=== PATIENT | female | born 1985 | race Caucasian/White ===

== ENCOUNTER 2019-02-17 03:47 | Emergency (ER) | payer MEDICAID ==
--- NOTE | 2019-02-17 04:11 | Emergency Department Record ---
History of Present Illness - General Chief complaint: Pain Stated complaint: NECK/SHOULDER PAIN Time Seen by Provider: 02/17/19 03:54 Source: Patient Mode of Arrival: Ambulatory Limitations: No limitations - History of Present Illness Initial comments: The patient is here due to a 2-3 day hx of L posterior neck pain. It is a sharp stabbing pain that intermittently radiates to the L shoulder. Any head or neck movement increases the pain. There is no arm or leg numbness, weakness, or any bowel or bladder issues. The patient has no hx of similar problems and no hx or recent trauma. She did take an ASA for it earlier this evening but since it did not work she decided to come to the ER. Additionally about 2 hours ago the patient did have a brief period of SOB which felt like her asthma. She did use her inhaller and then did feel some heart palpitations for a brief time. Presently feels completely back to normal and denies any SOB, MARCIO, CP, or palp itations. The patient also is late for her menses and believes she could be . Her last menses was about 6 weeks ago. MD Complaint: Neck Pain Onset/Timin -: Days(s) Location: Left, Shoulder History of Same: No Radiation: Proximal Quality: Aching Consistency: Constant Improves with: Immobilization, Other Worsens with: Exertion, Palpation, Other (twisting.) Associated Symptoms: Denies other symptoms - Related Data Allergies Allergy/AdvReac Type Severity Reaction Status Date / Time Penicillins Allergy Severe Hives, Unverified 01/21/19 14:33 nausea, urticaria Travel Screening - Travel/Exposure Within Last 30 Days Have you traveled within the last 30 days?: No - Travel Symptoms Symptom Screening: Joint & Muscle Aches Review of Systems Constitutional: Denies: Chills, Fever Eyes: Denies: Eye discharge ENT: Denies: Congestion Respiratory: Denies: Cough, Dyspnea Cardiovascular: Reports: Palpitations. Denies: Arrhythmia, Chest pain Endocrine: Denies: Fatigue Gastrointestinal: Denies: Nausea Genitourinary: Denies: Dysuria Musculoskeletal: Denies: Arthralgia Skin: Denies: Bruising Past Medical History - SOCIAL HISTORY Smoking Status: Current every day smoker Alcohol Use: None Drug Use: Rare Drug Use Detail:: Marijuana - RESPIRATORY Hx Respiratory Disorders: Yes Hx Asthma: Yes Comment:: seasonal allergies - CARDIOVASCULAR Hx Cardio Disorders: No - NEURO Hx Neuro Disorders: Yes Hx Headaches: Yes - GI Hx GI Disorders: No - Hx Genitourinary Disorders: No - ENDOCRINE Hx Endocrine Disorders: Yes Hx Thyroid Disease: Yes (partial thyroidectomy) - MUSCULOSKELETAL Hx Musculoskeletal Disorders: No - PSYCH Hx Psych Problems: Yes Comment:: bipolar I - HEMATOLOGY/ONCOLOGY Hx Hematology/Oncology Disorders: No Family Medical History Any Significant Family History?: Yes Hx Cancer: Mother Hx Diabetes: Father Physical Exam - General General Appearance: Alert, Oriented x3, Cooperative, No acute distress - Head Head exam: Atraumatic, Normocephalic, Normal inspection Image of Face/Head: 1 - Area of pain and reproducible tenderness. - Eye Eye exam: Normal appearance, PERRL - ENT Throat exam: Normal inspection. negative: Tonsillar erythema, Tonsillar exudate - Neck Neck exam: Normal inspection, Full ROM, Tenderness (Palpation of the L posterior cervical muscles does reproduce the pain. ). negative: Meningismus - Respiratory Respiratory exam: Normal lung sounds bilaterally. negative: Accessory muscle use, Prolonged expiratory, Respiratory distress, Rhonchi, Stridor, Wheezes - Cardiovascular Cardiovascular Exam: Regular rate, Normal rhythm, Normal heart sounds, Tachycardia (very mild at 105.) - GI/Abdominal GI/Abdominal exam: Soft, Normal bowel sounds. negative: Tenderness - Extremities Extremities exam: Normal inspection, Full ROM, Normal capillary refill. neg ative: Tenderness - Neurological Neurological exam: Abnormal gait, Alert, Normal gait, Oriented X3, Reflexes normal. negative: Altered, Motor sensory deficit (Motor and sensory are 5/5 to the upper and lower extremities.) - Skin Skin exam: negative: Rash Course Vital Signs 02/17/19 03:52 Temperature 98.4 F Pulse Rate [ 109 H Pulse Ox Probe] Respiratory 28 H Rate Blood Pressure 151/93 [Right Arm] Pulse Ox 94 L - Reevaluation(s) Reevaluation #1: The patient is doing very well at this time. She denies any CP, SOB, MARCIO, or palpitations. The L neck pain is mostly gone at this time and she only is f eeling it when she turns her head to the R. 02/17/19 04:29 Reevaluation #2: The patient is doing very well at this time and states her pain is almost gone. She is presently lying flat on the bed on her back with both arms crossed behind her head with her head resting on her hands. I did offer to keep her in the ER for a few hours for a 2nd troponin but she did refuse that plan. Her history is very atypical for cardiac pain and her Heart Score is very low so I do feel it is safe to discharge her. Additionally she no longer is tachycardic or dyspneic and has had no pleuritic pain and with the neg D-dimer I do not feel she will need any further workup for a PE. The patient is approx. 6 weeks and is to stop smoking and is to take Tylenol for her pain and see her PCP this week for recheck. 02/17/19 05:05 Medical Decision Making - Data Complexity MDM Data: Labs Ordered and/or Reviewed, X-Ray Ordered and/or Reviewed, EKG Ordered and/or Reviewed - Lab Data Result diagrams: 02/17/19 04:23 02/17/19 04:23 - EKG Data -: EKG Interpreted by Me EKG: No Acute Changes, Normal EKG - Radiology Data Radiology results: Report reviewed (CXR: Neg) Disposition Disposition: Discharge Clinical Impression: Spasm of cervical paraspinous muscle Disposition: Home, Self-Care Condition: (2) Stable Instructions: Muscle Spasm (ED) Additional Instructions: Please take Tylenol for pain and please stop smoking tobacco and Marijuana. Please see your family doctor for recheck this week. Please return to the ER for any worsening symptoms. Forms: Patient Portal Access Time of Disposition: 05:10 Quality - Quality Measures Quality Measures: N/A - Blood Pressure Screening View Details: Yes Does Patient Have Any of the Following: Active Dx of HTN Blood Pressure Classification: Hypertensive Reading Systolic Measurement: 155 Diastolic Measurement: 105 Screening for High Blood Pressure: Patient Exclusion, Hx of HTN [G9744]
[2019-02-17 04:18] LABS: URINE APPEARANCE CLEAR; URINE BILIRUBIN NEGATIVE (NEGATIVE); URINE BLOOD NEGATIVE (NEGATIVE); URINE COLOR YELLOW; URINE KETONE NEGATIVE (NEGATIVE); URINE LEUKOCYTE ESTERASE NEGATIVE (NEGATIVE); URINE NITRITE NEGATIVE (NEGATIVE); URINE PROTEIN NEGATIVE (NEGATIVE); URINE UROBILINOGEN 0.2 E.U./dL (0.20 - 1.00)
[2019-02-17 04:20] LABS: HCG,QUALITATIVE URINE POSITIVE (NEGATIVE)
[2019-02-17] MEDS ORDERED: ACETAMINOPHEN 325 MG TAB PO ONE (04:22)
[2019-02-17 04:24] LABS: AMPHETAMINE SCREEN URINE NOT DETECTED; BARBITURATE SCREEN URINE NOT DETECTED; BENZODIAZEPINE SCREEN URINE NOT DETECTED; COCAINE SCREEN URINE NOT DETECTED; METHADONE SCREEN URINE NOT DETECTED; METHAMPHETAMINE SCREEN NOT DETECTED; OPIATE SCREEN URINE NOT DETECTED; OXYCODONE SCREEN URINE NOT DETECTED; PHENCYCLIDINE SCREEN URINE NOT DETECTED; PROPOXYPHENE SCREEN URINE NOT DETECTED; THC SCREEN URINE DETECTED; TRICYCLIC ANTIDEPRESSANT SCRN NOT DETECTED
[2019-02-17 04:30] LABS: ABSOLUTE NEUTROPHIL COUNT 7.49; BASO % 0.4 % (0-6); EOS % 0.7 % (0-6); GRAN % 72.2 % (47-80); HEMATOCRIT 37.7 % (35.0-47.0); HEMOGLOBIN 12.7 gm/dl (11.6-16.0); LYMPH % 19.9 % (16-45); MEAN CELL VOLUME 92.9 fl (81-97); MEAN CORPUSCULAR HEMOGLOBIN 31.3 pg (27-33); MEAN CORPUSCULAR HGB CONC 33.7 g/dl (32-36); MEAN PLATELET VOLUME 8.5 fl (7.4-10.4); MONO % 6.8 % (0-9); PLATELET COUNT 297 K/uL (130-400); RED BLOOD COUNT 4.06 M/uL (3.80-5.40); RED CELL DISTRIBUTION WIDTH 12.7 % (11.5-14.5); WHITE BLOOD COUNT W/O DIFF 10.4 K/uL (4.2-12.2)
[2019-02-17 04:39] LABS: BLOOD UREA NITROGEN 6 mg/dL (6-20); CREATININE 0.6 mg/dL (0.5-0.9); EST GLOMERULAR FILTRATION RATE > 60 mL/min
[2019-02-17 04:40] LABS: TOTAL PROTEIN 6.2 g/dL (6.6-8.7)
[2019-02-17 04:42] LABS: GLUCOSE,RANDOM 168 mg/dL (74-109)
[2019-02-17] MEDS ORDERED: POTASSIUM CHLORIDE 20 MEQ TABLET PO ONE (04:42)
[2019-02-17 04:45] LABS: ALB/GLOB RATIO 1.8 (1.1-1.8); ALKALINE PHOSPHATASE 58 U/L (35-104); ALT/SGPT 8 U/L (<33); AST/SGOT 12 U/L (10.0-35.0)
--- NOTE | 2019-02-19 05:51 | RADIOLOGY REPORT ---
EXAM: CHEST 2 VIEWS HISTORY: UPPER NECK AND SHOULDER PAIN. SHORTNESS OF BREATH FOR TWO DAYS. TECHNIQUE: Upright PA and lateral views of the chest. COMPARISON: None. FINDINGS: The cardiomediastinal silhouette is normal in size and configuration. The pulmonary vasculature is nondilated. The lungs and pleural spaces are clear. Mild levoconvex curvature of the upper thoracic spine. Mild degenerative endplate changes scattered throughout the visualized spine. IMPRESSION: NO RADIOGRAPHIC EVIDENCE OF ACUTE CARDIOPULMONARY DISEASE. JOB NUMBER: [id number] [facility]
== END 2019-02-17 05:17 | disposition home or self-care (01) ==
LOC: ER 03:47
DX: M62.830 Muscle spasm of back (principal); M54.2 Cervicalgia; M25.512 Pain in left shoulder; R06.02 Shortness of breath; I10 Essential (primary) hypertension; F17.210 Nicotine dependence, cigarettes, uncomplicated
CPT/HCPCS: 71046; 80053; 80305; 81003; 81025; 84484; 85025; 85379; 93005; 93010; 99284

== ENCOUNTER 2019-10-22 01:16 | Inpatient (IN) | payer MEDICAID ==
--- NOTE | 2019-10-22 01:38 | Emergency Department Record ---
History of Present Illness - General Chief complaint: Fatigue and Weakness Stated complaint: WEAKNESS Time Seen by Provider: 10/22/19 01:18 Source: Patient, Family Mode of Arrival: Wheelchair Limitations: Altered mental status - History of Present Illness Initial comments: 34 yo female presents with about two weeks of symptoms. Her reports she delivered a baby on October 09 vaginally. The was at a hospital in [facility]. Per the she has not been acting normally since then. She has known schizophrenia. She is on Haldol and Cogentin. She has been mentally very slowed and withdrawn sleeping more. She has been weak all over. She is so weak she has trouble walking. She gets shaky. She is very slow to respond in conversations but answers appropriately. . The states she did have pre-eclampsia with the delivery. He states she was treated with magnesium for about a day and did well after delivery. No trauma has occurred that he or she are aware of. No fever. No abdominal pain. No vomiting or diarrhea. No cough or trouble breathing. She has been on the Haldol and Cogentin since mid last year. She is often slowed on the medicines but the last two weeks has been worse. She is followed through [facility] in [place] during the . She moved to the [facility] area to have the baby. She and her deny drugs or alcohol. Prior diagnoses per the and prior medical records include bipolar, glynn, psychosis, detachment disorder, hypertension. She was admitted to [facility] in the past. states they have been 13 years. No hallucinations with the symptoms. MD Complaint: Generalized weakness -: Week(s) (2) Severity: Moderate Quality: Other Consistency: Getting worse Improves with: None Worsens with: Other Context: Other (Schizophrenia) Associated Symptoms: Denies other symptoms - [place] Com[place] Scale Eye Response: (4) Open spontaneously Motor Response: (6) Obeys commands Verbal Response: (5) Oriented [place] Total: 15 - Related Data Home Medications Medication Instructions Recorded Confirmed Last Taken Benztropine Mesylate 1 mg PO DAILY 10/22/19 10/22/19 Unknown Haloperidol 10 mg PO DAILY 10/22/19 10/22/19 Unknown Nifedipine [Nifedipine ER] 30 mg PO DAILY 10/22/19 10/22/19 Unknown Allergies Allergy/AdvReac Type Severity Reaction Status Date / Time Penicillins Allergy Severe Hives, Unverified 01/21/19 14:33 nausea, urticaria Review of Systems Constitutional: Reports: Malaise, Weakness. Denies: Chills, Fever Eyes: Denies: Eye discharge, Eye pain, Photophobia, Vision change ENT: Denies: Congestion, Throat pain Respiratory: Denies: Cough, Dyspnea, Hemoptysis, Stridor, Wheezes Cardiovascular: Denies: Chest pain, Dyspnea on exertion, Palpitations, Syncope Endocrine: Reports: Fatigue. Denies: Polydipsia, Polyuria Gastrointestinal: Denies: Abdominal pain, Diarrhea, Nausea, Vomiting Genitourinary: Denies: Dysuria, Urgency Musculoskeletal: Denies: Arthralgia, Back pain, Myalgia Skin: Denies: Bruising, Change in color, Rash Neurological: Reports: Abnormal gait, Tremors, Weakness. Denies: Headache Psychiatric: Reports: Anxiety, Depression, Other. Denies: Auditory hallucinations, Visual hallucinations Hematological/Lymphatic: Denies: Anemia, Blood Clots, Easy bleeding, Easy bruising Past Medical History - SOCIAL HISTORY Smoking Status: Current every day smoker Drug Use: Rare Drug Use Detail:: Marijuana - RESPIRATORY Hx Respiratory Disorders: Yes Hx Asthma: Yes Comment:: seasonal allergies - CARDIOVASCULAR Hx Cardio Disorders: No - NEURO Hx Neuro Disorders: Yes Hx Headaches: Yes - GI Hx GI Disorders: No - Hx Genitourinary Disorders: No - ENDOCRINE Hx Endocrine Disorders: Yes Hx Thyroid Disease: Yes (partial thyroidectomy) - MUSCULOSKELETAL Hx Musculoskeletal Disorders: No - PSYCH Hx Psych Problems: Yes Comment:: bipolar I - HEMATOLOGY/ONCOLOGY Hx Hematology/Oncology Disorders: No Family Medical History Hx Cancer: Mother Hx Diabetes: Father Physical Exam - General General Appearance: Alert, Cooperative, No acute distress, Other (The patient is awake. She makes eye contact but is very slow to verbally acknowledge or respond) Limitations: No limitations - Head Head exam: Atraumatic, Normocephalic, Normal inspection - Eye Eye exam: Normal appearance, PERRL. negative: Conjunctival injection, Scleral icterus - ENT ENT exam: Normal exam, Mucous membranes moist, Normal orophraynx Ear exam: Normal external inspection Nasal Exam: Normal inspection Mouth exam: Normal external inspection - Neck Neck exam: Normal inspection, Full ROM. negative: Lymphadenopathy - Respiratory Respiratory exam: Normal lung sounds bilaterally. negative: Accessory muscle use, Decreased breath sounds, Prolonged expiratory, Rhonchi, Stridor, Wheezes - Cardiovascular Cardiovascular Exam: Regular rate, Normal rhythm, Normal heart sounds - GI/Abdominal GI/Abdominal exam: Soft. negative: Distended, Guarding, Tenderness - Rectal Rectal exam: Deferred - exam: Deferred - Extremities Extremities exam: Normal inspection. negative: Pedal edema - Back Back exam: Denies: CVA tenderness (R), CVA tenderness (L) - Neurological Neurological exam: Abnormal gait (slow, shuffled), Alert, Altered. negative: Motor sensory deficit - Psychiatric Psychiatric exam: Depressed, Flat affect. negative: Agitated, Anxious, Normal affect, Normal mood - Skin Skin exam: negative: Abrasion, Cyanosis, Diaphoretic, Mottled Course Vital Signs 10/22/19 01:22 Temperature 99.1 F Pulse Rate [ 102 H Pulse Ox Probe] Respiratory 24 Rate Blood Pressure 129/93 [Left Arm] Pulse Ox 93 L - Reevaluation(s) Reevaluation #1: 10/22/19 01:41 The patient was seen and examined She has a profoundly flat affect and is very slow to respond to questions No fever BP is 129/ Records from her were requested 10/22/19 02:18 10/22/19 02:19 The CBC was reviewed No acute abnormalities The LFTs are normal The Renal function is normal The Tylenol is negative The Aspirin is negative The Alcohol is negative 10/22/19 02:20 10/22/19 02:35 Lab contacted the ED K is 2.6 EKG and Monitor ordered KCL ordered 10/22/19 02:36 UDS is positive for marijuana 10/22/19 02:44 EKG #1: 02:37 Rate: 96 Rhythm: sinus [place]: normal Intervals: Qtc [address] ST segments: normal The patient will be admitted for hypokalemia and monitoring to see if her symptoms improve with K replenishment The states her next outpatient appointment is the in the [place] office Medical Decision Making - Lab Data Result diagrams: 10/22/19 01:42 10/22/19 01:42 Disposition Disposition: Admit Clinical Impression: Weakness, Hypokalemia Schizophrenia Qualifiers: Schizophrenia type: unspecified Qualified Code(s): F20.9 - Schizophrenia, unspecified Disposition: Still a Patient at [facility] Decision to Admit: Admit from ER Decision to Admit Date: 10/22/19 Decision to Admit Time: 02:38 Condition: (2) Stable Forms: Patient Portal Access Time of Disposition: 02:47 Quality - Quality Measures Quality Measures: N/A - Blood Pressure Screening Does Patient Have Any of the Following: Active Dx of HTN Blood Pressure Classification: Hypertensive Reading Systolic Measurement: 129 Diastolic Measurement: 93 Screening for High Blood Pressure: Patient Exclusion, Hx of HTN [G9744]
[2019-10-22 01:52] LABS: ABSOLUTE NEUTROPHIL COUNT 5.95; BASO % 0.5 % (0-6); EOS % 1.7 % (0-6); GRAN % 61.8 % (47-80); HEMATOCRIT 38.1 % (35.0-47.0); HEMOGLOBIN 12.6 gm/dl (11.6-16.0); LYMPH % 26.8 % (16-45); MEAN CELL VOLUME 96.5 fl (81-97); MEAN CORPUSCULAR HEMOGLOBIN 31.9 pg (27-33); MEAN CORPUSCULAR HGB CONC 33.1 g/dl (32-36); MEAN PLATELET VOLUME 8.2 fl (7.4-10.4); MONO % 9.2 % (0-9); PLATELET COUNT 393 K/uL (130-400); RED BLOOD COUNT 3.95 M/uL (3.80-5.40); RED CELL DISTRIBUTION WIDTH 13.5 % (11.5-14.5); WHITE BLOOD COUNT W/O DIFF 9.6 K/uL (4.2-12.2)
[2019-10-22 02:06] LABS: BLOOD UREA NITROGEN 5 mg/dL (6-20); CREATININE 0.5 mg/dL (0.5-0.9); EST GLOMERULAR FILTRATION RATE > 60 mL/min; TOTAL PROTEIN 6.1 g/dL (6.6-8.7)
[2019-10-22 02:07] LABS: INR 1.1; PARTIAL THROMBOPLASTIN TIME 26.8 SECONDS (24.5-39.1); PROTHROMBIN TIME (PATIENT) 11.1 SECONDS (9.5-12.1)
[2019-10-22 02:08] LABS: GLUCOSE,RANDOM 122 mg/dL (74-109)
[2019-10-22 02:11] LABS: ALBUMIN 3.7 g/dL (4.0-5.0); ALKALINE PHOSPHATASE 96 U/L (35-104); ALT/SGPT 17 U/L (<33); AST/SGOT 17 U/L (10.0-35.0)
[2019-10-22 02:13] LABS: ACETAMINOPHEN < 5.0 ug/mL (10.0-30.0); BILIRUBIN,DIRECT < 0.2 mg/dL (0-0.3); SALICYLATE < 0.3 mg/dL (2.8-20)
--- NOTE | 2019-10-22 02:17 | CT SCAN REPORT ---
EXAMINATION: CT Head without IV Contrast EXAM DATE: 10/22/2019 2:11 AM TECHNIQUE: Standard protocol CT images of the head were obtained without intravenous contrast. Donaldson l and sagittal reconstructed images were created. INDICATION: 34-year-old female who is 2 weeks presents with weakness, dizziness, falls an d is slow to respond. COMPARISON: None. HAND DOMINANCE: Unknown. ENCOUNTER: Not applicable. FINDINGS: The basal cisterns, ventricular system and the sulci overlying the cervical convexities are well visu alized and are normal in appearance for the patient's age. The brain parenchyma has normal density with nothing to suggest an acute ischemic event, brain parenc hymal mass or acute intracranial hemorrhage. There is no abnormal extra-axial fluid. The orbits and mastoid regions are normal in appearance. The visualized portions of the paranasal sin uses are clear and well aerated. There is no skull fracture. IMPRESSION: 1. Normal noncontrast CT of the head. Dictated by: Hermes Sanz DO on 10/22/2019 2:11 AM. .
[2019-10-22 02:22] LABS: THYROID STIMULATING HORMONE 0.63 uIU/mL (0.270-4.20)
[2019-10-22 02:30] LABS: URINE APPEARANCE CLEAR; URINE BILIRUBIN NEGATIVE (NEGATIVE); URINE BLOOD NEGATIVE (NEGATIVE); URINE COLOR YELLOW; URINE GLUCOSE (UA) NEGATIVE (NEGATIVE); URINE KETONE NEGATIVE (NEGATIVE); URINE LEUKOCYTE ESTERASE NEGATIVE (NEGATIVE); URINE NITRITE NEGATIVE (NEGATIVE); URINE PROTEIN NEGATIVE (NEGATIVE); URINE UROBILINOGEN 0.2 E.U./dL (0.20 - 1.00)
[2019-10-22 02:34] LABS: AMPHETAMINE SCREEN URINE NOT DETECTED; BARBITURATE SCREEN URINE NOT DETECTED; BENZODIAZEPINE SCREEN URINE NOT DETECTED; COCAINE SCREEN URINE NOT DETECTED; METHADONE SCREEN URINE NOT DETECTED; METHAMPHETAMINE SCREEN NOT DETECTED; OPIATE SCREEN URINE NOT DETECTED; OXYCODONE SCREEN URINE NOT DETECTED; PHENCYCLIDINE SCREEN URINE NOT DETECTED; PROPOXYPHENE SCREEN URINE NOT DETECTED; THC SCREEN URINE DETECTED; TRICYCLIC ANTIDEPRESSANT SCRN NOT DETECTED
[2019-10-22] MEDS ORDERED: SOD CHLOR 0.9% WITH KCL 40MEQ 40 MEQ/1,000 ML IV.SOLN IV ONE ×2 (02:35→02:48)
[2019-10-22] MEDS: SOD CHLOR 0.9% WITH KCL 40MEQ 40 MEQ/1,000 ML IV.SOLN IV SCH ×2 (03:23→14:24)
--- NOTE | 2019-10-22 07:29 | History & Physical ---
History of Present Illness - Date of Service Date of Service for History & Physical: 10/22/19 - History of Present Illness Admitting Diagnosis: Hypokalemia, weakness, schizophrenia vs psychosis History of Present Illness: 34 yo female presents to [facility] ER for ALOC, is 2 weeks with h/o schizophrenia. Pt was seen by [facility] and was instructed to take her to ER at [facility] for evaluation of ALOC, tremors, rigidity, slow response time and flat affect. declined this instructions (being considered AMA by Dr Clara Villela OB) took her home with and then later brought her to [facility] ER for evaluation of worsening symptoms. Pt was found to be flat, slow to respond verbally and physically through the [facility] ht per Dr Blanco. K 2.6 but remaining labs wnl. Pt admitted for hypokalemia Laboratory Tests 10/22/19 10/22/19 10/22/19 01:42 01:42 01:42 WBC 9.6 RBC 3.95 Hgb 12.6 Hct 38.1 Plt Count 393 PT 11.1 INR 1.1 APTT 26.8 Potassium 2.6 L* Chloride 100 Carbon Dioxide 26.0 Anion Gap 15.0 BUN 5 L Creatinine 0.5 Random Glucose 122 H Calcium 8.8 Magnesium Total Bilirubin 0.20 Direct Bilirubin < 0.2 AST 17 ALT 17 Alkaline Phosphatase 96 Ammonia Total Protein 6.1 L Albumin 3.7 L TSH 0.63 Salicylates < 0.3 L Acetaminophen < 5.0 L Ethyl Alcohol 0.010 10/22/19 10/22/19 01:42 01:42 WBC RBC Hgb Hct Plt Count PT INR APTT Potassium Chloride Carbon Dioxide Anion Gap BUN Creatinine Random Glucose Calcium Magnesium 2.1 Total Bilirubin Direct Bilirubin AST ALT Alkaline Phosphatase Ammonia 38 Total Protein Albumin TSH Salicylates Acetaminophen Ethyl Alcohol 10/22/19 0700 pt is non verbal, does not make eye contact, shuffling gate, slow physically, and only able to follow one step commands to ambulate to and from the toilet. Vaginal bleeding at a minimal, noted to be light brown spotting. Pt is moving all extremities but resting pose, hand curl in almost a decorticate pose but feet are not pointing down and all extremities are moveable. Attempts to transfer to [facility] and [facility] have failed as OB will not take r/t possible psychosis vs catatonic state vs schizophrenia progression Travel Screening - Travel/Exposure Within Last 30 Days Have you traveled within the last 30 days?: No - Travel/Exposure Within Last Year Have you traveled outside the [place] in the last year?: No - Additonal Travel Details Have you been exposed to anyone with a communicable illness?: No - Travel Symptoms Symptom Screening: None Review of Systems Constitutional: Reports: Malaise, Weakness. Denies: Chills, Fever Eyes: Denies: Eye discharge, Eye pain, Photophobia, Vision change ENT: Denies: Congestion, Throat pain Respiratory: Denies: Cough, Dyspnea, Hemoptysis, Stridor, Wheezes Cardiovascular: Denies: Chest pain, Dyspnea on exertion, Palpitations, Syncope Endocrine: Reports: Fatigue. Denies: Polydipsia, Polyuria Gastrointestinal: Denies: Abdominal pain, Diarrhea, Nausea, Vomiting Genitourinary: Denies: Dysuria, Urgency Musculoskeletal: Denies: Arthralgia, Back pain, Myalgia Skin: Denies: Bruising, Change in color, Rash Neurological: Reports: Abnormal gait, Tremors, Weakness. Denies: Headache Psychiatric: Reports: Anxiety, Depression, Other. Denies: Auditory hallucinations, Visual hallucinations Hematological/Lymphatic: Denies: Anemia, Blood Clots, Easy bleeding, Easy bruising Past Medical History - SOCIAL HISTORY Smoking Status: Current every day smoker Drug Use: Occasional Drug Use Detail:: Marijuana - RESPIRATORY Hx Respiratory Disorders: Yes Hx Asthma: Yes Comment:: seasonal allergies - CARDIOVASCULAR Hx Cardio Disorders: No - NEURO Hx Neuro Disorders: Yes Hx Headaches: Yes - GI Hx GI Disorders: No - Hx Genitourinary Disorders: No - ENDOCRINE Hx Endocrine Disorders: Yes Hx Thyroid Disease: Yes (partial thyroidectomy) - MUSCULOSKELETAL Hx Musculoskeletal Disorders: No - PSYCH Hx Psych Problems: Yes Comment:: bipolar I - HEMATOLOGY/ONCOLOGY Hx Hematology/Oncology Disorders: No Family Medical History Any Significant Family History?: Yes Hx Cancer: Mother Hx Diabetes: Father H&P Meds/Allergies - Allergies Allergies: Allergies Allergy/AdvReac Type Severity Reaction Status Date / Time Penicillins Allergy Severe Hives, Unverified 01/21/19 14:33 nausea, urticaria - Home Medications Home Medications Medication Instructions Recorded Confirmed Last Taken Benztropine Mesylate 1 mg PO DAILY 0110/22/19 10/21/19 18:00 Haloperidol 10 mg PO DAILY 10/22/19 10/22/19 10/21/19 18:00 Nifedipine [Nifedipine ER] 30 mg PO DAILY 10/22/19 10/22/19 10/21/19 08:00 - Active Medications Active Medications: Current Medications Potassium Chloride/Sodium Chloride (Potassium Chl 40meq/) 40 meq in 1,000 mls @ 100 mls/hr IV NOW ONE Stop: 10/22/19 12:47 Last Admin: 10/22/19 02:53 Dose: 100 mls/hr Documented by: Potassium Chloride/Sodium Chloride (Potassium Chl 40meq/) 40 meq in 1,000 mls @ 83 mls/hr IV Q12H [facility] Last Admin: 10/22/19 03:23 Dose: 83 mls/hr Documented by: Nifedipine (Procardia Xl) 30 mg PO DAILY [facility] Non-Formulary Medication (Haloperidol [Haloperidol]) 10 mg PO DAILY [facility] Non-Formulary Medication (Benztropine Mesylate [Benztropine Mesylate]) 1 mg PO DAILY [facility] Physical Exam - Vital Signs Vital Signs: Vital Signs - Last 24 Hrs Temp Pulse Resp BP Pulse Ox 10/22/19 03:40 98.2 F 66 18 134/87 94 L 10/22/19 02:55 114 H 14 141/100 98 10/22/19 01:22 99.1 F 102 H 24 129/93 93 L - General General Appearance: Alert, Cooperative, Moderate distress, Other (pt is non verbal, does not make eye contact) Limitations: Altered mental status - Head Head exam: Atraumatic, Normocephalic, Normal inspection - Eye Eye exam: Normal appearance, PERRL. negative: Conjunctival injection, Scleral icterus - ENT ENT exam: Normal exam, Mucous membranes moist, Normal orophraynx Ear exam: Normal external inspection Nasal Exam: Normal inspection Mouth exam: Normal external inspection - Neck Neck exam: Normal inspection, Full ROM. negative: Lymphadenopathy - Respiratory Respiratory exam: Normal lung sounds bilaterally. negative: Accessory muscle use, Decreased breath sounds, Prolonged expiratory, Rhonchi, Stridor, Wheezes - Cardiovascular Cardiovascular Exam: Normal rhythm, Normal heart sounds, Tachycardia - GI/Abdominal GI/Abdominal exam: Soft. negative: Distended, Guarding, Tenderness - Rectal Rectal exam: Deferred - exam: Deferred - Extremities Extremities exam: Normal inspection. negative: Pedal edema - Back Back exam: Denies: CVA tenderness (R), CVA tenderness (L) - Neurological Neurological exam: Abnormal gait (slow, shuffled), Alert, Altered. negative: Motor sensory deficit - Psychiatric Psychiatric exam: Depressed, Flat affect. negative: Agitated, Anxious, Normal affect, Normal mood - Skin Skin exam: negative: Abrasion, Cyanosis, Diaphoretic, Mottled Results - Labs Result Diagrams: 10/22/19 01:42 10/22/19 08:49 Labs Last 24 Hours: Laboratory Results - last 24 hr 10/22/19 10/22/19 10/22/19 01:42 01:42 01:42 WBC 9.6 RBC 3.95 Hgb 12.6 Hct 38.1 MCV 96.5 MCH 31.9 MCHC 33.1 RDW 13.5 Plt Count 393 MPV 8.2 Gran % 61.8 Lymphocytes % 26.8 Monocytes % 9.2 H Eosinophils % 1.7 Basophils % 0.5 Absolute Neutrophils 5.95 PT 11.1 INR 1.1 APTT 26.8 Sodium 141 Potassium 2.6 L* Chloride 100 Carbon Dioxide 26.0 Anion Gap 15.0 BUN 5 L Creatinine 0.5 Estimated GFR > 60 POC Glucose Random Glucose 122 H Calcium 8.8 Magnesium Total Bilirubin 0.20 Direct Bilirubin < 0.2 AST 17 ALT 17 Alkaline Phosphatase 96 Ammonia Cancelled Total Protein 6.1 L Albumin 3.7 L TSH 0.63 Urine Color Urine Appearance Urine pH Ur Specific [place] Urine Protein Urine Glucose (UA) Urine Ketones Urine Blood Urine Nitrite Urine Bilirubin Urine Urobilinogen Ur Leukocyte Esterase Salicylates < 0.3 L Urine Opiates Screen Ur Oxycodone Screen Urine Methadone Screen Ur Propoxyphene Screen Acetaminophen < 5.0 L Ur Barbituates Screen Ur Tricyclics Screen Ur Phencyclidine Scrn Ur Amphetamine Screen U Methamphetamines Scrn U Benzodiazepines Scrn Urine Cocaine Screen Urine Cannabis Screen Ethyl Alcohol 0.010 10/22/19 10/22/19 10/22/19 01:42 01:42 02:20 WBC RBC Hgb Hct MCV MCH MCHC RDW Plt Count MPV Gran % Lymphocytes % Monocytes % Eosinophils % Basophils % Absolute Neutrophils PT INR APTT Sodium Potassium Chloride Carbon Dioxide Anion Gap BUN Creatinine Estimated GFR POC Glucose Random Glucose Calcium Magnesium 2.1 Total Bilirubin Direct Bilirubin AST ALT Alkaline Phosphatase Ammonia 38 Total Protein Albumin TSH Urine Color Yellow Urine Appearance Clear Urine pH 6.5 Ur Specific [place] 1.020 Urine Protein Negative Urine Glucose (UA) Negative Urine Ketones Negative Urine Blood Negative Urine Nitrite Negative Urine Bilirubin Negative Urine Urobilinogen 0.2 Ur Leukocyte Esterase Negative Salicylates Urine Opiates Screen Ur Oxycodone Screen Urine Methadone Screen Ur Propoxyphene Screen Acetaminophen Ur Barbituates Screen Ur Tricyclics Screen Ur Phencyclidine Scrn Ur Amphetamine Screen U Methamphetamines Scrn U Benzodiazepines Scrn Urine Cocaine Screen Urine Cannabis Screen Ethyl Alcohol 10/22/19 10/22/19 02:20 04:13 WBC RBC Hgb Hct MCV MCH MCHC RDW Plt Count MPV Gran % Lymphocytes % Monocytes % Eosinophils % Basophils % Absolute Neutrophils PT INR APTT Sodium Potassium Chloride Carbon Dioxide Anion Gap BUN Creatinine Estimated GFR POC Glucose 125 H Random Glucose Calcium Magnesium Total Bilirubin Direct Bilirubin AST ALT Alkaline Phosphatase Ammonia Total Protein Albumin TSH Urine Color Urine Appearance Urine pH Ur Specific [place] Urine Protein Urine Glucose (UA) Urine Ketones Urine Blood Urine Nitrite Urine Bilirubin Urine Urobilinogen Ur Leukocyte Esterase Salicylates Urine Opiates Screen Not detected Ur Oxycodone Screen Not detected Urine Methadone Screen Not detected Ur Propoxyphene Screen Not detected Acetaminophen Ur Barbituates Screen Not detected Ur Tricyclics Screen Not detected Ur Phencyclidine Scrn Not detected Ur Amphetamine Screen Not detected U Methamphetamines Scrn Not detected U Benzodiazepines Scrn Not detected Urine Cocaine Screen Not detected Urine Cannabis Screen Detected Ethyl Alcohol - Imaging and Cardiology CT scan - chest Status: Pending VTE H&P Assessment - Risk for VTE Risk for VTE: Yes Risk Level: High Risk Assessment Date: 10/22/19 Risk Assessment Time: 07:43 VTE Orders Placed or Will Be Placed: Yes Plan - Inpatient Certification Inpatient Certification: Admit to inpatient care: Based on my medical assessment, after consideration of patient's risk factors (age, co-morbidities and patient presenting symptoms and acuity), I expect that this patient will remain in the hospital greater than or equal to two midnights and that the services needed warrant inpatient care becau se: Patient Risk Factors: unable to perform ADLs, hypokalemia, dsyrhythmia Estimated length of stay: [] The patient may reasonably be expected to be discharged or transferred to a hospital within 96 hours after admission to [facility]. Services needed: cardiac monitoring, ADL assistance, behavioral health monitoring, K supplement, repeat labs Post hospital care (if known): [] I certify that my determination is in accordance with my understanding of Medicare requirements for reasonable and necessary inpatient services. 10/22/19 17:57 - Detailed Diagnosis and Plan (1) psychosis Current Visit: Yes Status: Acute Base Code: O99.345 - OTHER MENTAL DISORDERS COMPLICATING THE PUERPERIUM; F53.1 - PUERPERAL PSYCHOSIS Comment: 10/22/19 -pt is practically non verbal, answering 1 out of 3 questions, not making eye contact, difficulty following multistep instructions -pt has h/o schizophrenia, she is 2 weeks with 3 child -pt has the and 2 other childre -pt delivered with Dr Bearden (2) Hypokalemia Current Visit: Yes Status: Acute Base Code: E87.6 - HYPOKALEMIA Comment: 10/22/19 -pt presented to ER with k 2.6 -pt given NS 40mEq 1 L and repeat 1 L -[employer] boss -repeat labs this afternoon (3) Schizophrenia Current Visit: Yes Status: Acute Qualifiers: Schizophrenia type: unspecified Qualified Code(s): F20.9 - Schizophrenia, unspecified Base Code: F20.9 - SCHIZOPHRENIA, UNSPECIFIED Comment: 10/22/19 -pt takes haladol 10mg once daily
[2019-10-22 08:58] LABS: BLOOD UREA NITROGEN 6 mg/dL (6-20); CREATININE 0.6 mg/dL (0.5-0.9); EST GLOMERULAR FILTRATION RATE > 60 mL/min
[2019-10-22 09:00] LABS: GLUCOSE,RANDOM 102 mg/dL (74-109)
[2019-10-22] MEDS ORDERED: OLANZAPINE 10 MG VIAL IM PRN (09:22)
[2019-10-22] MEDS ORDERED: OLANZAPINE 5MG TABLET PO PRN (09:22)
[2019-10-22] MEDS ORDERED: HALOPERIDOL 10 MG PO SCH (10:00)
[2019-10-22] MEDS ORDERED: BENZTROPINE MESYLATE 1 MG PO SCH (10:00)
[2019-10-22] MEDS: POTASSIUM CHLORIDE 20 MEQ/15ML CUP PO SCH ×2 (10:05→14:23)
[2019-10-22] MEDS: NIFEDIPINE 30 MG TAB.ER.24 PO SCH (10:06)
[2019-10-23] MEDS: SOD CHLOR 0.9% WITH KCL 40MEQ 40 MEQ/1,000 ML IV.SOLN IV SCH (02:38)
[2019-10-23] MEDS: POTASSIUM CHLORIDE 20 MEQ/15ML CUP PO SCH ×2 (08:38→09:11)
[2019-10-23] MEDS: NIFEDIPINE 30 MG TAB.ER.24 PO SCH ×2 (08:38→09:11)
[2019-10-23 11:55] LABS: BLOOD UREA NITROGEN 4 mg/dL (6-20); CREATININE 0.5 mg/dL (0.5-0.9); EST GLOMERULAR FILTRATION RATE > 60 mL/min; GLUCOSE,RANDOM 81 mg/dL (74-109)
[2019-10-24] MEDS: NIFEDIPINE 30 MG TAB.ER.24 PO SCH (09:43)
--- NOTE | 2019-10-24 13:52 | Physician Progress Note ---
Subjective - Date Date of Physician Progress Note: 10/23/19 - Subjective Subjective Comment: pt remains slow to respond, does not make eye contact, answers some questions but with slowed response. pt does respond to touch and voice but will not turn toward staff until told in specific one step instructions Objective - Vital Signs Vital Signs: Vital Signs - Last 24 Hrs Temp Pulse Resp BP BP Pulse Ox 10/24/19 09:00 16 10/24/19 08:00 98.2 F 85 16 138/90 98 10/24/19 05:00 98.4 F 68 18 132/80 94 L 10/24/19 00:00 98.0 F 65 16 126/76 94 L 10/23/19 21:00 16 10/23/19 20:00 98.0 F 67 18 135/84 95 10/23/19 16:57 74 16 136/93 95 - General General Appearance: Alert, Cooperative, Moderate distress, Other (pt has limited/pressured/delayed verbal, does not make eye contact) Limitations: Altered mental status - Head Head exam: Atraumatic, Normocephalic, Normal inspection - Eye Eye exam: Normal appearance, PERRL. negative: Conjunctival injection, Scleral icterus - ENT ENT exam: Normal exam, Mucous membranes moist, Normal orophraynx Ear exam: Normal external inspection Nasal Exam: Normal inspection Mouth exam: Normal external inspection - Neck Neck exam: Normal inspection, Full ROM. negative: Lymphadenopathy - Respiratory Respiratory exam: Normal lung sounds bilaterally. negative: Accessory muscle use, Decreased breath sounds, Prolonged expiratory, Rhonchi, Stridor, Wheezes - Cardiovascular Cardiovascular Exam: Regular rate, Normal rhythm, Normal heart sounds Peripheral Pulses: 3+: Radial (R), Radial (L), Dorsalis Pedis (R), Dorsalis Pedis (L) - GI/Abdominal GI/Abdominal exam: Soft. negative: Distended, Guarding, Tenderness - Rectal Rectal exam: Deferred - exam: Deferred - Extremities Extremities exam: Normal inspection. negative: Pedal edema - Back Back exam: Denies: CVA tenderness (R), CVA tenderness (L) - Neurological Neurological exam: Abnormal gait (slow, shuffled), Alert, Altered. negative: Motor sensory deficit - Psychiatric Psychiatric exam: Depressed, Flat affect. negative: Agitated, Anxious, Normal affect, Normal mood - Skin Skin exam: negative: Abrasion, Cyanosis, Diaphoretic, Mottled Assessment and Plan - Assessment and Plan (1) psychosis Current Visit: Yes Status: Acute Base Code: O99.345 - OTHER MENTAL DISORDERS COMPLICATING THE PUERPERIUM; F53.1 - PUERPERAL PSYCHOSIS Comment: 10/23/2019 -pt has minimal verbal response to stay, noted at the bedside, reports pt has been this way and worsening since delivering her third baby 2 weeks ago -was started on pitocin infusion to induce labor and then had tremors that started, she became more withdrawal, slower in speech and movement and stopped making eye contact -[facility] and [facility] are already involved in the pt's care. Otilia from [facility] schedule to make contact today in the hospital -Dr Nichols consulted on the case, pt has not made attempts to leave or been aggressive with staff since arrival -awaiting [facility] placement 10/22/19 -pt is practically non verbal, answering 1 out of 3 questions, not making eye contact, difficulty following multistep instructions -pt has h/o schizophrenia, she is 2 weeks with 3 child -pt has the and 2 other childre -pt delivered with Dr Bearden (2) Hypokalemia Current Visit: Yes Status: Acute Base Code: E87.6 - HYPOKALEMIA Comment: 10/23/2019 -K 2.6-->2.9-->3.9 -given IV and PO supplemenation -continue cardiac monitoring, repeat labs in the AM 10/22/19 -pt presented to ER with k 2.6 -pt given NS 40mEq 1 L and repeat 1 L -security monitor -repeat labs this afternoon (3) Schizophrenia Current Visit: Yes Status: Acute Qualifiers: Schizophrenia type: unspecified Qualified Code(s): F20.9 - Schizophrenia, unspecified Base Code: F20.9 - SCHIZOPHRENIA, UNSPECIFIED Comment: 10/23/2019 -haladol held r/t unknown mental health issues and concerns for need for medication changes -unknown if pt has been taking medication prior to this admission but no significant changes since stopping haladol 10/22/19 -pt takes haladol 10mg once daily (4) Full code status Current Visit: Yes Status: Acute Base Code: Z78.9 - OTHER SPECIFIED HEALTH STATUS Comment: 10/23/2019 full code (5) DVT prophylaxis Current Visit: Yes Status: Acute Base Code: Z29.9 - ENCOUNTER FOR PROPHYLACTIC MEASURES, UNSPECIFIED Results - Labs Result Diagrams: 10/22/19 01:42 10/23/19 11:15 DVT/PE Assessment - Risk for VTE Risk for VTE: No Risk Level: High Risk Assessment Date: 10/22/19 Risk Assessment Time: 07:43 VTE Orders Placed or Will Be Placed: Yes - Active Medicaitons Current Medications: Current Medications Nifedipine (Procardia Xl) 30 mg PO DAILY [facility] Last Admin: 10/24/19 09:43 Dose: 30 mg Documented by: Olanzapine (Zyprexa) 5 mg PO Q12H PRN PRN Reason: AGITATION Last Admin: 10/23/19 02:37 Dose: 5 mg Documented by: Olanzapine (Zyprexa) 5 mg IM Q12H PRN PRN Reason: AGITATION AMI Plan - Labs Result Diagrams: 10/22/19 01:42 10/23/19 11:15
--- NOTE | 2019-10-24 14:01 | Physician Progress Note ---
Subjective - Date Date of Physician Progress Note: 10/24/19 - Subjective Subjective Comment: 10/23/2019 pt remains slow to respond, does not make eye contact, answers some questions but with slowed response. pt does respond to touch and voice but will not turn toward staff until told in specific one step instructions 10/24/2019 pt continues to have decreased verbalization with staff, continues to lay in recliner in room, blanket over her, laying on right side. Pt will answer simple questions but take 10-15 seconds to respond. is eating and drinking with verbal cueing and set meal times with delivery Objective - Vital Signs Vital Signs: Vital Signs - Last 24 Hrs Temp Pulse Resp BP BP Pulse Ox 10/24/19 09:00 16 10/24/19 08:00 98.2 F 85 16 138/90 98 10/24/19 05:00 98.4 F 68 18 132/80 94 L 10/24/19 00:00 98.0 F 65 16 126/76 94 L 10/23/19 21:00 16 10/23/19 20:00 98.0 F 67 18 135/84 95 10/23/19 16:57 74 16 136/93 95 - General General Appearance: Alert, Cooperative, Moderate distress, Other (pt has limited/pressured/delayed verbal, does not make eye contact) Limitations: Altered mental status - Head Head exam: Atraumatic, Normocephalic, Normal inspection - Eye Eye exam: Normal appearance, PERRL. negative: Conjunctival injection, Scleral icterus - ENT ENT exam: Normal exam, Mucous membranes moist, Normal orophraynx Ear exam: Normal external inspection Nasal Exam: Normal inspection Mouth exam: Normal external inspection - Neck Neck exam: Normal inspection, Full ROM. negative: Lymphadenopathy - Respiratory Respiratory exam: Normal lung sounds bilaterally. negative: Accessory muscle use, Decreased breath sounds, Prolonged expiratory, Rhonchi, Stridor, Wheezes - Cardiovascular Cardiovascular Exam: Regular rate, Normal rhythm, Normal heart sounds Peripheral Pulses: 3+: Radial (R), Radial (L), Dorsalis Pedis (R), Dorsalis Pedis (L) - GI/Abdominal GI/Abdominal exam: Soft. negative: Distended, Guarding, Tenderness - Rectal Rectal exam: Deferred - exam: Deferred - Extremities Extremities exam: Normal inspection. negative: Pedal edema - Back Back exam: Denies: CVA tenderness (R), CVA tenderness (L) - Neurological Neurological exam: Abnormal gait (slow, shuffled), Alert, Altered. negative: Motor sensory deficit - Psychiatric Psychiatric exam: Depressed, Flat affect. negative: Agitated, Anxious, Normal affect, Normal mood - Skin Skin exam: negative: Abrasion, Cyanosis, Diaphoretic, Mottled Assessment and Plan - Assessment and Plan (1) psychosis Current Visit: Yes Status: Acute Base Code: O99.345 - OTHER MENTAL DISORDERS COMPLICATING THE PUERPERIUM; F53.1 - PUERPERAL PSYCHOSIS Comment: 10/24/2019 -pt remains withdrawn, awaiting [facility] placment concerns for catatonic schizophrenia vs PP psychosis 10/23/2019 -pt has minimal verbal response to stay, noted at the bedside, reports pt has been this way and worsening since delivering her third baby 2 weeks ago -was started on pitocin infusion to induce labor and then had tremors that started, she became more withdrawal, slower in speech and movement and stopped making eye contact -[facility] and [facility] are already involved in the pt's care. Otilia from [facility] schedule to make contact today in the hospital -Dr Nichols consulted on the case, pt has not made attempts to leave or been aggressive with staff since arrival -awaiting [facility] placement 10/22/19 -pt is practically non verbal, answering 1 out of 3 questions, not making eye contact, difficulty following multistep instructions -pt has h/o schizophrenia, she is 2 weeks with 3 child -pt has the and 2 other childre -pt delivered with Dr Bearden (2) Hypokalemia Current Visit: Yes Status: Acute Base Code: E87.6 - HYPOKALEMIA Comment: 10/24/2019 --K 2.6-->2.9-->3.9-->4.6 -supp stopped, montior d/c 10/23/2019 -K 2.6-->2.9-->3.9 -given IV and PO supplemenation -continue cardiac monitoring, repeat labs in the AM 10/22/19 -pt presented to ER with k 2.6 -pt given NS 40mEq 1 L and repeat 1 L -monitoring specialist -repeat labs this afternoon (3) Schizophrenia Current Visit: Yes Status: Acute Qualifiers: Schizophrenia type: catatonic schizophrenia Qualified Code(s): F20.2 - Catatonic schizophrenia Base Code: F20.9 - SCHIZOPHRENIA, UNSPECIFIED Comment: 10/24/2019 -pt remains same, no worsening of symptoms since stopping haladol, awaiting [facility] placment 10/23/2019 -haladol held r/t unknown mental health issues and concerns for need for medication changes -unknown if pt has been taking medication prior to this admission but no significant changes since stopping haladol 10/22/19 -pt takes haladol 10mg once daily (4) Full code status Current Visit: Yes Status: Acute Base Code: Z78.9 - OTHER SPECIFIED HEALTH STATUS Comment: 10/24/2019 full code (5) DVT prophylaxis Current Visit: Yes Status: Acute Base Code: Z29.9 - ENCOUNTER FOR PROPHYLACTIC MEASURES, UNSPECIFIED Comment: 10/24/2019 love 40mg SQ daily Results - Labs Result Diagrams: 10/22/19 01:42 10/23/19 11:15 DVT/PE Assessment - Risk for VTE Risk for VTE: No Risk Level: High Risk Assessment Date: 10/22/19 Risk Assessment Time: 07:43 VTE Orders Placed or Will Be Placed: Yes - Active Medicaitons Current Medications: Current Medications Nifedipine (Procardia Xl) 30 mg PO DAILY [facility] Last Admin: 10/24/19 09:43 Dose: 30 mg Documented by: Olanzapine (Zyprexa) 5 mg PO Q12H PRN PRN Reason: AGITATION Last Admin: 10/23/19 02:37 Dose: 5 mg Documented by: Olanzapine (Zyprexa) 5 mg IM Q12H PRN PRN Reason: AGITATION AMI Plan - Labs Result Diagrams: 10/22/19 01:42 10/23/19 11:15
[2019-10-24] MEDS: ENOXAPARIN 40 MG/0.4 ML SYR SQ SCH (14:23)
[2019-10-25] MEDS: NIFEDIPINE 30 MG TAB.ER.24 PO SCH (11:14)
[2019-10-25] MEDS: ENOXAPARIN 40 MG/0.4 ML SYR SQ SCH (11:14)
--- NOTE | 2019-10-25 13:44 | Physician Progress Note ---
Subjective - Date Date of Physician Progress Note: 10/25/19 Objective - Vital Signs Vital Signs: Vital Signs - Last 24 Hrs Temp Pulse Resp BP BP Pulse Ox 10/25/19 09:00 16 10/25/19 08:34 98.5 F 88 16 135/81 95 10/25/19 05:00 98.0 F 78 18 129/71 95 10/25/19 00:00 97.8 F 74 18 124/68 94 L 10/24/19 21:00 16 10/24/19 20:00 98.1 F 99 H 16 119/75 96 - General General Appearance: Alert, Cooperative, Moderate distress, Other (pt has limited/pressured/delayed verbal, does not make eye contact) Limitations: Altered mental status - Head Head exam: Atraumatic, Normocephalic, Normal inspection - Eye Eye exam: Normal appearance, PERRL. negative: Conjunctival injection, Scleral icterus - ENT ENT exam: Normal exam, Mucous membranes moist, Normal orophraynx Ear exam: Normal external inspection Nasal Exam: Normal inspection Mouth exam: Normal external inspection - Neck Neck exam: Normal inspection, Full ROM. negative: Lymphadenopathy - Respiratory Respiratory exam: Normal lung sounds bilaterally. negative: Accessory muscle use, Decreased breath sounds, Prolonged expiratory, Rhonchi, Stridor, Wheezes - Cardiovascular Cardiovascular Exam: Regular rate, Normal rhythm, Normal heart sounds Peripheral Pulses: 3+: Radial (R), Radial (L), Dorsalis Pedis (R), Dorsalis Pe dis (L) - GI/Abdominal GI/Abdominal exam: Soft. negative: Distended, Guarding, Tenderness - Rectal Rectal exam: Deferred - exam: Deferred - Extremities Extremities exam: Normal inspection. negative: Pedal edema - Back Back exam: Denies: CVA tenderness (R), CVA tenderness (L) - Neurological Neurological exam: Abnormal gait (slow, shuffled), Alert, Altered. negative: Motor sensory deficit - Psychiatric Psychiatric exam: Depressed, Flat affect. negative: Agitated, Anxious, Normal affect, Normal mood - Skin Skin exam: negative: Abrasion, Cyanosis, Diaphoretic, Mottled Assessment and Plan - Assessment and Plan (1) psychosis Current Visit: Yes Status: Acute Base Code: O99.345 - OTHER MENTAL DISORDERS COMPLICATING THE PUERPERIUM; F53.1 - PUERPERAL PSYCHOSIS Comment: 10/24/2019 -pt remains withdrawn, awaiting [facility] placment concerns for catatonic schizophrenia vs PP psychosis 10/23/2019 -pt has minimal verbal response to stay, noted at the bedside, reports pt has been this way and worsening since delivering her third baby 2 weeks ago -was started on pitocin infusion to induce labor and then had tremors that started, she became more withdrawal, slower in speech and movement and stopped making eye contact -CM and APS are already involved in the pt's care. Otilia from APS schedule to make contact today in the hospital -Dr Nichols consulted on the case, pt has not made attempts to leave or been aggressive with staff since arrival -awaiting [facility] placement 10/22/19 -pt is practically non verbal, answering 1 out of 3 questions, not making eye contact, difficulty following multistep instructions -pt has h/o schizophrenia, she is 2 weeks with 3 child -pt has the and 2 other childre -pt delivered with Dr Bearden (2) Hypokalemia Current Visit: Yes Status: Acute Base Code: E87.6 - HYPOKALEMIA Comment: 10/24/2019 --K 2.6-->2.9-->3.9-->4.6 -supp stopped, montior d/c 10/23/2019 -K 2.6-->2.9-->3.9 -given IV and PO supplemenation -continue cardiac monitoring, repeat labs in the AM 10/22/19 -pt presented to ER with k 2.6 -pt given NS 40mEq 1 L and repeat 1 L -alarm security or surveillance monitor -repeat labs this afternoon (3) Schizophrenia Current Visit: Yes Status: Acute Qualifiers: Schizophrenia type: catatonic schizophrenia Qualified Code(s): F20.2 - Catatonic schizophrenia Base Code: F20.9 - SCHIZOPHRENIA, UNSPECIFIED Comment: 10/24/2019 -pt remains same, no worsening of symptoms since stopping haladol, awaiting [facility] placment 10/23/2019 -haladol held r/t unknown mental health issues and concerns for need for medication changes -unknown if pt has been taking medication prior to this admission but no significant changes since stopping haladol 10/22/19 -pt takes haladol 10mg once daily (4) Full code status Current Visit: Yes Status: Acute Base Code: Z78.9 - OTHER SPECIFIED HEALTH STATUS Comment: 10/24/2019 full code (5) DVT prophylaxis Current Visit: Yes Status: Acute Base Code: Z29.9 - ENCOUNTER FOR PROPHYLACTIC MEASURES, UNSPECIFIED Comment: 10/24/2019 love 40mg SQ daily Results - Labs Result Diagrams: 10/22/19 01:42 10/23/19 11:15 DVT/PE Assessment - Risk for VTE Risk for VTE: No Risk Level: High Risk Assessment Date: 10/22/19 Risk Assessment Time: 07:43 VTE Orders Placed or Will Be Placed: Yes - Active Medicaitons Current Medications: Current Medications Enoxaparin Sodium (Lovenox) 40 mg SQ DAILY [facility] Last Admin: 10/25/19 11:14 Dose: 40 mg Documented by: Nifedipine (Procardia Xl) 30 mg PO DAILY [facility] Last Admin: 10/25/19 11:14 Dose: 30 mg Documented by: Olanzapine (Zyprexa) 5 mg PO Q12H PRN PRN Reason: AGITATION Last Admin: 10/23/19 02:37 Dose: 5 mg Documented by: Olanzapine (Zyprexa) 5 mg IM Q12H PRN PRN Reason: AGITATION AMI Plan - Labs Result Diagrams: 10/22/19 01:42 10/23/19 11:15
--- NOTE | 2019-10-26 08:30 | Discharge Summary ---
Providers Discharge Summary Date: 10/25/19 Date of admission: 10/22/19 03:04 Expected Date of Discharge: 10/25/19 Attending physician: LYDIA NICHOLS Primary care physician: LYDIA NICHOLS Physical Exam - Vital Signs Vital Signs: Vital Signs - Last 24 Hrs Temp Pulse Resp BP Pulse Ox 10/25/19 15:37 98.5 F 83 16 145/97 94 L 10/25/19 09:00 16 10/25/19 08:34 98.5 F 88 16 135/81 95 - General General Appearance: Alert, Cooperative, Moderate distress, Other (pt has limited/pressured/delayed verbal, does not make eye contact) Limitations: Altered mental status - Head Head exam: Atraumatic, Normocephalic, Normal inspection - Eye Eye exam: Normal appearance, PERRL. negative: Conjunctival injection, Scleral icterus - ENT ENT exam: Normal exam, Mucous membranes moist, Normal orophraynx Ear exam: Normal external inspection Nasal Exam: Normal inspection Mouth exam: Normal external inspection - Neck Neck exam: Normal inspection, Full ROM. negative: Lymphadenopathy - Respiratory Respiratory exam: Normal lung sounds bilaterally. negative: Accessory muscle use, Decreased breath sounds, Prolonged expiratory, Rhonchi, Stridor, Wheezes - Cardiovascular Cardiovascular Exam: Regular rate, Normal rhythm, Normal heart sounds Peripheral Pulses: 3+: Radial (R), Radial (L), Dorsalis Pedis (R), Dorsalis Pedis (L) - GI/Abdominal GI/Abdominal exam: Soft. negative: Distended, Guarding, Tenderness - Rectal Rectal exam: Deferred - exam: Deferred - Extremities Extremities exam: Normal inspection. negative: Pedal edema - Back Back exam: Denies: CVA tenderness (R), CVA tenderness (L) - Neurological Neurological exam: Abnormal gait (slow, shuffled), Alert, Altered. negative: Motor sensory deficit - Psychiatric Psychiatric exam: Depressed, Flat affect. negative: Agitated, Anxious, Normal affect, Normal mood - Skin Skin exam: negative: Abrasion, Cyanosis, Diaphoretic, Mottled Hospitalization - Hospitalization Admission Diagnosis: Hypokalemia, weakness, schizophrenia vs psychosis - Problem List/Discharge Diagnosis (1) psychosis Status: Acute Base Code: O99.345 - OTHER MENTAL DISORDERS COMPLICATING THE PUERPERIUM; F53.1 - PUERPERAL PSYCHOSIS Comment: 10/25/2019 -pt continues to avoid all eye contact, eating at set meal times per dietary delivery -pt encouraged to have increased PO intake and toilet freq -reports limited but continues vaginal bleeding, pads noted 10/24/2019 -pt remains withdrawn, awaiting [facility] placment concerns for catatonic schizophrenia vs PP psychosis 10/23/2019 -pt has minimal verbal response to stay, noted at the bedside, reports pt has been this way and worsening since delivering her third baby 2 weeks ago -was started on pitocin infusion to induce labor and then had tremors that started, she became more withdrawal, slower in speech and movement and stopped making eye contact -[facility] and [facility] are already involved in the pt's care. Otilia from APS schedule to make contact today in the hospital -Dr Nichols consulted on the case, pt has not made attempts to leave or been aggressive with staff since arrival -awaiting [facility] placement 10/22/19 -pt is practically non verbal, answering 1 out of 3 questions, not making eye contact, difficulty following multistep instructions -pt has h/o schizophrenia, she is 2 weeks with 3 child -pt has the and 2 other childre -pt delivered with Dr Bearden (2) Hypokalemia Status: Acute Base Code: E87.6 - HYPOKALEMIA Comment: 10/24/2019 --K 2.6-->2.9-->3.9-->4.6 -supp stopped, montior d/c 10/23/2019 -K 2.6-->2.9-->3.9 -given IV and PO supplemenation -continue cardiac monitoring, repeat labs in the AM 10/22/19 -pt presented to ER with k 2.6 -pt given NS 40mEq 1 L and repeat 1 L -diagnostic cardiac sonographer -repeat labs this afternoon (3) Schizophrenia Status: Acute Discharge Diagnosis: Schizophrenia type: catatonic schizophrenia Qualified Code(s): F20.2 - Catatonic schizophrenia Base Code: F20.9 - SCHIZOPHRENIA, UNSPECIFIED Comment: 10/24/2019 -pt remains same, no worsening of symptoms since stopping haladol, awaiting [facility] placment 10/23/2019 -haladol held r/t unknown mental health issues and concerns for need for medication changes -unknown if pt has been taking medication prior to this admission but no significant changes since stopping haladol 10/22/19 -pt takes haladol 10mg once daily (4) Full code status Status: Acute Base Code: Z78.9 - OTHER SPECIFIED HEALTH STATUS Comment: 10/24/2019 full code (5) DVT prophylaxis Status: Acute Base Code: Z29.9 - ENCOUNTER FOR PROPHYLACTIC MEASURES, UNSPECIFIED Comment: 10/24/2019 love 40mg SQ daily - Hospitalization Course Disposition: Psychiatric Hospital Procedures: Imaging and X-Rays 10/22/19 01:31 HEAD WO CONTRAST [CT] Stat Cardiology Procedures 10/22/19 02:35 Mental Health Aides Teacher NOW EKG NOW 10/22/19 03:14 Mental Health Aides Teacher NOW Abnormal Labs: Abnormal Lab Results 10/22/19 10/22/19 10/22/19 Range/Units 01:42 01:42 04:13 Monocytes % 9.2 H (0-9) % Potassium 2.6 L* (3.4-4.5) mmol/L Chloride (98-107) mmol/L BUN 5 L (6-20) mg/dL POC Glucose 125 H (70-110) mg/dL Random Glucose 122 H (74-109) mg/dL Calcium (8.6-10.0) mg/dL Total Protein 6.1 L (6.6-8.7) g/dL Albumin 3.7 L (4.0-5.0) g/dL Salicylates < 0.3 L (2.8-20) mg/dL Acetaminophen < 5.0 L (10.0-30.0) ug/mL 10/22/19 10/23/19 Range/Units 08:49 11:15 Monocytes % (0-9) % Potassium 2.9 L* 4.6 H (3.4-4.5) mmol/L Chloride 110 H (98-107) mmol/L BUN 4 L (6-20) mg/dL POC Glucose (70-110) mg/dL Random Glucose (74-109) mg/dL Calcium 8.5 L (8.6-10.0) mg/dL Total Protein (6.6-8.7) g/dL Albumin (4.0-5.0) g/dL Salicylates (2.8-20) mg/dL Acetaminophen (10.0-30.0) ug/mL Condition at Discharge: (2) Stable Discharge Medications - Discharge Medications Home Medications: Ambulatory Orders Benztropine Mesylate 1 mg PO DAILY 10/22/19 [Last Taken 10/21/19 18:00] Haloperidol 10 mg PO DAILY 10/22/19 [Last Taken 10/21/19 18:00] Nifedipine [Nifedipine ER] 30 mg PO DAILY 10/22/19 [Last Taken 10/21/19 08:00] Discharge Plan - Discharge Instructions Diet at Discharge: Advance to Usual Diet Additional Instructions: [facility] emergency services [phone] Ashley [facility] emergency services APS Otilia Terry [employer] [facility] admission to [facility] in [place] and Dr Garcia arrived 730pm 10/25/19 confirmed by [facility] facilitated transfer and contacted EMS for transport Quality Measures - Quality Measures Quality Measures: Documentation of Current Medications in Medical Record, Screening for High Blood Pressure and F/U Documented - Current Medications Quality Measure: Measure #130: Documentation of Current Medications Documentation of Current Medications: <Current Medications Documented/Reviewed> [[id number]] - Blood Pressure Screening Quality Measure: Screening for High Blood Pressure and Follow-Up Documented Does Patient Have Any of the Following: Active Dx of HTN Blood Pressure Classification: Hypertensive Reading Systolic Measurement: 145 Diastolic Measurement: 97 Screening for High Blood Pressure: Patient Exclusion, Hx of HTN [G9744] - Elder Abuse Suspicion Index EASI Reference Information: Yong MEEKS, Sade C, Elaina D, Pat Henao.Development and validation of a tool to assist physicians identification of elder abuse: The Elder Abuse Suspicion Index (EASI ). Journal of Elder Abuse and Neglect, 2008; 20 (3): 276-300.
== END 2019-10-25 15:55 | DRG 641 ==
LOC: ER 01:16 → MEDSURG 03:04
PROVIDERS: ADMIT Internal Medicine; ATTEND Internal Medicine
DX: E87.6 Hypokalemia (principal); F53.1 Puerperal psychosis; O90.9 Complication of the puerperium, unspecified; F20.9 Schizophrenia, unspecified; F31.9 Bipolar disorder, unspecified; F29 Unspecified psychosis not due to a substance or known physiological condition; F41.8 Other specified anxiety disorders; F17.210 Nicotine dependence, cigarettes, uncomplicated
CPT/HCPCS: 36416; 70450; 80048; 80076; 80305; 80320; 80329; 81003; 82140; 82948; 83735; 84132; 84443; 85025; 85610; 85730; 93005; 93010; 96365; 99223; 99233; 99239; 99285; J1650